=== PATIENT | male | born 1980 | race African-American/Black ===

== ENCOUNTER 2017-07-01 13:52 | Emergency (ER) | payer SELFPAY ==
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
[2017-07-01] MEDS ORDERED: Benzocaine 20% Topical Spray UD MUCMEM ONE (14:19)
[2017-07-01] MEDS ORDERED: Lidocaine 2% Viscous Solution 15 ML Cup PO ONE (14:19)
[2017-07-01 17:17] VITALS: BP 134/77
== END 2017-07-01 14:29 | disposition home or self-care (01) ==
LOC: MW.ED 13:52
DX: K04.7 Periapical abscess without sinus (principal); F17.210 Nicotine dependence, cigarettes, uncomplicated
CPT/HCPCS: 99282; A9270

== ENCOUNTER 2020-10-04 16:15 | Emergency (ER) | payer MEDICAID ==
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
--- NOTE | 2020-10-04 17:14 | CR ---
INDICATION: Pain after injury. TECHNIQUE: Two views left foot. IMPRESSION: Somewhat prominent 5th metatarsal tuberosity. Query prior injury. No definite acute fracture. Mild degenerative arthrosis suggested at the calcaneocuboid joint on the AP view. Minor degenerative arthrosis of the navicular cuneiform joints. Posterior subtalar joint not well-defined. IMPRESSION: No definitive acute fracture. Mild midfoot osteoarthritis. Poorly defined subtalar joint. Query coalition. Dictated by Hong Saucedo MD @ Oct 04 2020 5:12PM Signed by Dr. Hong Saucedo @ Oct 04 2020 5:12PM
[2020-10-04 18:10] VITALS: BP 177/104; PULSE 79
[2020-10-04] MEDS ORDERED: Diphtheria,Pertussis(Acell),Tetanus Vaccine 0.5 ML Syringe IM ONE (18:22)
== END 2020-10-04 18:38 | disposition home or self-care (01) ==
LOC: MW.ED 16:15
DX: S91.212A Laceration without foreign body of left great toe with damage to nail, initial encounter (principal); Z23 Encounter for immunization; W20.8XXA Other cause of strike by thrown, projected or falling object, initial encounter
CPT/HCPCS: 12002; 73620; 90471; 99283; J2001

== ENCOUNTER 2020-12-27 10:00 | Emergency (ER) | payer OTHER, MEDICAID ==
[2020-12-27] MEDS ORDERED: Ketorolac 60 MG/2 ML SDV IM ONE (10:33)
[2020-12-27] MEDS ORDERED: Acetaminophen 500 MG Tab PO ONE (10:45)
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
[2020-12-27 11:50] VITALS: BP 171/102; PULSE 84
== END 2020-12-27 11:50 | disposition home or self-care (01) ==
LOC: MW.ED 10:00
DX: M54.5 Low back pain (principal); I10 Essential (primary) hypertension; V48.9XXA Unspecified car occupant injured in noncollision transport accident in traffic accident, initial encounter; Y92.481 Parking lot as the place of occurrence of the external cause
CPT/HCPCS: 72128; 72131; 99284; A9270

== ENCOUNTER 2021-02-10 07:36 | Emergency (ER) | payer MEDICAID, OTHER ==
[2021-02-10] MEDS ORDERED: Acetaminophen 500 MG Tab PO ONE (09:13)
--- NOTE | 2021-02-10 09:51 | PCM.EKG ---
#1 Interpretation EKG Date: 02/10/21 Time: 09:24 Rhythm: NSR Rate (Beats/Min): 83 [place]: Normal P-Wave: Present QRS: Normal ST-T: Normal QT: Normal (T wave inversion III) Comparison: NA - No Prior EKG EKG Interpretation Comments: Sinus Rhythm
[2021-02-10 10:32] LABS: BLOOD UREA NITROGEN,BUN 10 mg/dL (7.0-18.0); CARBON DIOXIDE,CO2 26.3 mmol/L (21.0-32.0); CHLORIDE,CL 105 mmol/L (98-107); GLUCOSE RANDOM 105 mg/dL (74-106); POTASSIUM,K 4.2 mmol/L (3.5-5.1); SODIUM,NA 141 mmol/L (136-148)
--- NOTE | 2021-02-10 11:54 | CT ---
INDICATION: Severe right-sided headache, hypertension. TECHNIQUE: After standard noncontrast head CT, high resolution axial CT images acquired through the head and neck following rapid intravenous administration of iodinated contrast. Multiplanar MIPS of cranial and cervical vasculature performed. FINDINGS: Noncontrast head CT: There is no intracranial hemorrhage or fluid collection. The levy-white matter differentiation is maintained. The ventricles are of normal morphology. The basal cisterns are clear. CTA head: There is normal filling of the intracranial vasculature; i.e. there is no large vessel occlusion or intracranial stenosis. There is no cerebral aneurysm or evidence for vascular malformation. CTA neck: Both carotid and vertebral arteries have a normal course and caliber. There is no stenosis or evidence for dissection. IMPRESSION: Unremarkable CT head, CTA head and neck. Lisandro Callejas MD Neurointerventional Radiologist [facility] Please note that all CT scans at this facility use dose modulation, iterative reconstruction, and/or weight-based dosing when appropriate to reduce radiation dose to as low as reasonably achievable. Dictated by Lisandro Callejas MD @ 02/10/2021 11:52:[address] Lisandro Callejas @ Feb 10 2021 11:52AM
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
[2021-02-10] MEDS ORDERED: Iopamidol 755 MG/ML 500 ML Multipack Bottle IVPUSH STA (17:45)
[2021-02-10 20:39] VITALS: BP 143/90; PULSE 82
== END 2021-02-10 12:10 | disposition home or self-care (01) ==
LOC: MW.ED 07:36
DX: R51.9 Headache, unspecified (principal); R19.7 Diarrhea, unspecified; I10 Essential (primary) hypertension; E66.9 Obesity, unspecified; Z68.41 Body mass index [BMI] 40.0-44.9, adult; Z72.0 Tobacco use
CPT/HCPCS: 36415; 70496; 70498; 80053; 80305; 82375; 83735; 84484; 85025; 99284; Q9967; 99283

== ENCOUNTER 2023-04-19 02:11 | Emergency (ER) | payer SELFPAY ==
[2023-04-19 02:25] VITALS: BP 166/10; PULSE 104
[2023-04-19] MEDS ORDERED: Ibuprofen 600 MG Tab PO ONE (02:34)
== END 2023-04-19 02:53 | disposition home or self-care (01) ==
LOC: MW.ED 02:11
DX: H60.501 Unspecified acute noninfective otitis externa, right ear (principal)
CPT/HCPCS: 99282; A9270; 99283

== ENCOUNTER 2025-06-14 17:14 | Emergency (ER) | payer MEDICAID, OTHER ==
[2025-06-14 17:53] LABS: BASOPHILS ABSOLUTE AUTO 0.03 K/uL (0.00-0.20); BASOPHILS PERCENT AUTO 0.4 % (0.0-1.0); EOSINOPHILS ABSOLUTE AUTO 0.05 K/uL (0.00-0.45); EOSINOPHILS PERCENT AUTO 0.7 % (0.0-6.0); IMMATURE GRAN ABSOLUTE AUTO 0.02 K/uL (0.00-0.05); IMMATURE GRAN PERCENT AUTO 0.3 % (0.0-0.4); LYMPHOCYTES ABSOLUTE AUTO 2.44 K/uL (1.00-4.80); LYMPHOCYTES PERCENT AUTO 36.0 % (24.0-44.0); MEAN PLATELET VOLUME 10.1 fL (9.4-12.4); MONOCYTES ABSOLUTE AUTO 0.55 K/uL (0.00-0.80); MONOCYTES PERCENT AUTO 8.1 % (0.0-8.0); NEUTROPHILS ABSOLUTE AUTO 3.69 K/uL (1.80-7.70); NEUTROPHILS PERCENT AUTO 54.5 % (41.0-71.0); NRBC ABSOLUTE 0.00 K/uL (0.00-0.02); NRBC PERCENT 0.0 /100WBC (0.0-0.2); PLATELET COUNT,PLT 209 K/uL (150-400); RED BLOOD CELL COUNT 5.48 M/uL (4.52-5.90); WHITE BLOOD CELL COUNT,WBC 6.78 K/uL (3.9-11.3)
[2025-06-14] MEDS: Sodium Chloride 0.9% 10 ML Syringe FLUSH PRN (17:56)
[2025-06-14] MEDS: Sodium Chloride 0.9% 2.5 ML Syringe FLUSH PRN (17:56)
[2025-06-14 18:19] LABS: A/G RATIO 1.0 (0.9-1.6); ALANINE AMINOTRANSFERASE,ALT 18.0 IU/L (14-63); BILIRUBIN TOTAL 0.3 mg/dL (0.2-1.0); BLOOD UREA NITROGEN,BUN 16.0 mg/dL (7.0-18.0); CARBON DIOXIDE,CO2 26.0 mmol/L (21.0-32.0); CHLORIDE,CL 107.0 mmol/L (98-107); CREATININE 1.4 mg/dL (0.8-1.3); EST CRCL DRUG DOSING (CG) 77.47 mL/min; GLUCOSE RANDOM 110.0 mg/dL (74-106); POTASSIUM,K 3.7 mmol/L (3.5-5.1); PROTEIN TOTAL,TP 7.6 g/dL (6.4-8.2); SODIUM,NA 142.0 mmol/L (136-148)
[2025-06-14 18:24] LABS: ESTIMATED GFR 63.0 mL/min (>60)
[2025-06-14 18:36] LABS: ASPARTATE AMNIOTRANSFERASE,AST 22.0 IU/L (15-37)
[2025-06-14] MEDS: Iopamidol 755 Mg/ML 100 ML Bottle IVPUSH ONE (18:38)
[2025-06-15 00:08] VITALS: BP 162/93; PULSE 69
== END 2025-06-14 20:19 | disposition home or self-care (01) ==
LOC: MW.ED 17:14
DX: M79.605 Pain in left leg (principal); M54.50 Low back pain, unspecified; N28.9 Disorder of kidney and ureter, unspecified; I10 Essential (primary) hypertension; F17.200 Nicotine dependence, unspecified, uncomplicated; V89.9XXA Person injured in unspecified vehicle accident, initial encounter
CPT/HCPCS: 36415; 71260; 73590; 74177; 80053; 83690; 85025; 96360; 99285; J7030; Q9967; 99283

== ENCOUNTER 2025-06-27 21:52 | Emergency (ER) | payer SELFPAY ==
[2025-06-27] MEDS: Lisinopril/Hydrochlorothiazide 10-12.5 MG Tab PO ONE (22:49)
[2025-06-27] MEDS: Ketorolac 30 MG/ML SDV IM ONE (22:50)
[2025-06-28 00:03] VITALS: BP 145/95; PULSE 77
== END 2025-06-28 00:02 | disposition home or self-care (01) ==
LOC: MW.ED 21:52
DX: M25.571 Pain in right ankle and joints of right foot (principal); M25.572 Pain in left ankle and joints of left foot; I10 Essential (primary) hypertension; Z79.899 Other long term (current) drug therapy; Z91.148 Patient's other noncompliance with medication regimen for other reason
CPT/HCPCS: 73610; 99283; A9270